=== PATIENT | female | born 1970 | race Caucasian/White ===

== ENCOUNTER 2016-12-29 23:04 | Emergency (ER) | payer BC ==
[~2016-12-29] VITALS: Ht 165.1 cm; Wt 63.5 kg
[~2016-12-29 23:04] MED LIST: CYCL-331 PO; HYDR-2758 PO; HYDR-971 PO; MELO15TA23 PO; TRAM50TA PO
[2016-12-29 23:42] VITALS: BP 146/107
[2016-12-29] MEDS ORDERED: KETOROLAC 60 MG/2 ML VIAL. IM ONE (23:58)
[2016-12-29] MEDS ORDERED: ACETAMINOPHEN 500 MG TABLET PO ONE (23:58)
[2016-12-30] MEDS ORDERED: ACETAMINOPHEN 500 MG TABLET PO ONE (00:30)
[2016-12-30] MEDS ORDERED: KETOROLAC 60 MG/2 ML VIAL. IM ONE (00:30)
[2016-12-30] MEDS ORDERED: CYCL-331 PO (00:45)
--- NOTE | 2016-12-30 01:10 | ED.ADGEN ---
Past History Past Medical History: Sciatica Past Surgical History: Hysterectomy Alcohol Use: None Drug Use: None Adult General HPI HPI Patient is a 46-year-old woman, who presents to the emergency department with a complaint of an exacerbation of her "sciatica". Patient states that she has history of chronic back pain, has fusion at L4-L5, and also as a spinal stimulator in place. She states generally, she is able to control her back pain with her tramadol, however states she began experiencing pain around 10:00 tonight, which has been worsening for the past several hours. Patient denies any discrete injuries, or triggers, states "sometimes this just happens". Patient states the pain begins in her lower back on the right side, does radiate into her buttock. She denies any new injuries, any weakness, numbness or tingling, any fevers or chills, any loss of bowel or bladder control or changes in bowel or bladder habits, any chest pain or shortness breath, any change of her typical "flares". Patient states that typically when the symptoms occur she receives a shot of Toradol, and pain medications, and is unable to follow-up with her doctor without issue. Patient did drive herself to the emergency department, and is ambulating without difficulty upon arrival to the ED. Review of Systems Review of Systems Constitutional: Denies fever or chills [] Eyes: Denies change in visual acuity, redness, or eye pain [] HENT: Denies nasal congestion or sore throat [] Respiratory: Denies cough or shortness of breath [] Cardiovascular: No additional information not addressed in HPI [] GI: Denies abdominal pain, nausea, vomiting, bloody stools or diarrhea [] : Denies dysuria or hematuria [] Musculoskeletal: Lower back pain, right-sided. Integument: Denies rash or skin lesions [] Neurologic: Denies headache, focal weakness or sensory changes [] Endocrine: Denies polyuria or polydipsia [] Current Medications Current Medications Current Medications Medications (Trade) Dose Ordered Sig/Shreyas Start Time Stop Time Status Last Admin Dose Admin Acetaminophen (Tylenol) 500 mg STK-MED ONCE 12/29/16 23:58 12/29/16 23:59 DC Ketorolac Tromethamine (Toradol) 60 mg STK-MED ONCE 12/29/16 23:58 12/29/16 23:59 DC Allergies Allergies Allergies Coded Allergies Type Severity Reaction Last Updated Verified Penicillins Allergy Severe Hives 08/18/14 Yes Physical Exam Physical Exam Constitutional: Well developed, well nourished, no acute distress, non-toxic appearance. [] HENT: Normocephalic, atraumatic, bilateral external ears normal, oropharynx moist, no oral exudates, nose normal. [] Eyes: PERRLA, EOMI, conjunctiva normal, no discharge. [] Neck: Normal range of motion, no tenderness, supple, no stridor. [] Cardiovascular:Heart rate regular rhythm, no murmur, S1, S2, no rubs or gallops. [] Lungs & Thorax: Bilateral breath sounds clear to auscultation, no wheezing, rhonchi, rales. No chest wall crepitus or tenderness. [] Abdomen: Bowel sounds normal, soft, no rebound, rigidity, no guarding, no tenderness, no masses, no pulsatile masses. [] Skin: Warm, dry, no erythema, no rash. [] Back: Midline tenderness, no step-offs or deformities. Patient noted have will he'll surgical incision over the lower lumbar spine, patient with mild to palpation the piriformis muscle on the right, with no significant spasm or tissue tension noted, no lesions or evidence of injury, no CVA tenderness. [] Extremities: No tenderness, no cyanosis, no clubbing, ROM intact, no edema. [] Neurologic: Alert and oriented X 3, normal motor function, normal sensory function, no focal deficits noted. [] Psychologic: Affect normal, judgement normal, mood normal. [] Current Patient Data Vital Signs Vital Signs Date Time Temp Pulse Resp B/P (MAP) Pulse Ox O2 Delivery O2 Flow Rate FiO2 12/29/16 23:42 98.4 75 20 99 Room Air EKG EKG Not indicated.[] Radiology/Procedures Radiology/Procedures Not indicated.[] Course & Med Decision Making Course & Med Decision Making Pertinent Labs and Imaging studies reviewed. (See chart for details) Patient did decline urinalysis in the ED, states she had no urinary symptoms. She states "this is just my usual sciatica". Patient is neurologically intact, with no concerning history or new symptoms that would require additional evaluation at this time, she is agreeable with plan to receive Toradol, acetaminophen in the ED and to reassess. Patient was given an injection of IM Toradol, 30 mg, and oral acetaminophen. On reevaluation, patient states her pain is about a 6 at this time, slightly improved, and that she would like to be discharged home. She states she'll be able to follow-up with her primary care provider, and return if any new or concerning symptoms develop. We did discuss concerning symptoms that would prompt return. Patient discharged home in stable condition, ambulating without difficulty upon exiting the ED, with prescription for Flexeril, with instructions for follow-up and return as stated. Final Impression Final Impression [] Problems: Dragon Disclaimer Dragon Disclaimer This electronic medical record was generated, in whole or in part, using a voice recognition dictation system. Departure: Impression: Primary Impression: Acute exacerbation of chronic low back pain Disposition: 01 HOME, SELF-CARE Condition: IMPROVED Scripts Cyclobenzaprine Hcl (CYCLOBENZAPRINE HCL) 10 Mg Tablet 1 TAB PO PRN TID Y for MUSCLE PAIN, #12 TAB Prov: ORESTES IRVIN DO 12/30/16 ORESTES IRVIN DO Dec 30, 2016 01:10
== END 2016-12-30 00:48 | disposition home or self-care (01) ==
LOC: ER 23:04
DX: G89.29 Other chronic pain (principal); M54.5 Low back pain; Z88.0 Allergy status to penicillin
CPT/HCPCS: 96372; 99283; J1885